=== PATIENT | male | born 1960 | race Caucasian/White ===

== ENCOUNTER 2016-07-18 08:29 | Inpatient (IN) | payer OTHER, MEDICARE ==
[2016-07-18] MEDS ORDERED: IPRATROPIUM/ALBUTEROL (0.5MG/3MG) NEB INH ONE (08:37)
[2016-07-18] MEDS ORDERED: METHYLPREDNISOLONE PF 125MG/VIAL IVP ONE (08:37)
[2016-07-18 08:54] LABS: HEMATOCRIT 44.2 % (42.0-52.0); HEMOGLOBIN 15.1 gm/dl (14.0-18.0); MEAN CELL VOLUME 88.4 fl (81-97); MEAN CORPUSCULAR HEMOGLOBIN 30.2 pg (27-33); MEAN CORPUSCULAR HGB CONC 34.2 g/dl (32-36); MEAN PLATELET VOLUME 10.7 fl (7.4-10.4); PLATELET COUNT 155 K/uL (130-400); RED CELL DISTRIBUTION WIDTH 14.6 % (11.5-14.5)
--- NOTE | 2016-07-18 08:58 | Emergency Department Record ---
History of Present Illness - General Chief Complaint: Shortness of breath Stated Complaint: SOB Time Seen by Provider: 07/18/16 08:37 Source: Patient Mode of Arrival: Ambulatory Limitations: No limitations - History of Present Illness Initial Comments: pt just got back from [place] where he rode with his sister who was sick in a car. he has been coughing, sob, chilling. he has copd, he smoked while on vacation. MD Complaint: Cough, Shortness of breath Onset/Timin -: Hour(s) Consistency: Intermittent Improves With: Nothing Worsens With: Coughing, Exertion Known History Of: COPD Context: Recent travel Associated Symptoms: Cough Treatments Prior to Arrival: None - Related Data Home Oxygen Therapy: No Home Medications Medication Instructions Recorded Confirmed Last Taken Albuterol Sulfate [Proair Hfa] 1 - 2 puff IH .EVERY 4-6 HOURS PRN 07/18/1607/18 Unknown Digoxin 125 mcg PO DAILY 07/18/16 07/18/16 07/17/16 Methadone HCl 3 mg PO BID 07/18/16 07/18/16 07/17/16 Metoprolol Succinate 100 mg PO DAILY 07/18/16 07/18/16 07/17/16 Oxycodone HCl 15 mg PO ASDIR 07/18/16 07/18/16 07/17/16 Warfarin Sodium [Coumadin] 3 mg PO QHS 07/18/16 07/18/16 07/17/16 Allergies Allergy/AdvReac Type Severity Reaction Status Date / Time No Known Drug Allergies Allergy Verified 07/18/16 08:37 Travel Screening - Travel/Exposure Within Last 30 Days Have you traveled within the last 30 days?: Yes Location Detail:: [place] - Travel Symptoms Symptom Screening: Chills Review of Systems Reviewed: No additional complaints except as noted below Constitutional: Reports: As per HPI. Denies: Chills, Fever, Malaise, Night sweats, Weakness, Weight change Eyes: Reports: As per HPI. Denies: Eye discharge, Eye pain, Photophobia, Vision change ENT: Reports: As per HPI. Denies: Congestion, Dental pain, Ear pain, Epistaxis , Hearing loss, Throat pain Respiratory: Reports: As per HPI. Denies: Cough, Dyspnea, Hemoptysis, Stridor, Wheezes Cardiovascular: Reports: As per HPI. Denies: Arrhythmia, Chest pain, Dyspnea on exertion, Edema, Murmurs, Orthopnea, Palpitations, Paroxysmal nocturnal dyspnea, Rheumatic Fever, Syncope Endocrine: Reports: As per HPI. Denies: Fatigue, Heat or cold intolerance, Polydipsia, Polyuria Gastrointestinal: Reports: As per HPI. Denies: Abdominal pain, Constipation, Diarrhea, Hematemesis, Hematochezia, Melena, Nausea, Vomiting Genitourinary: Reports: As per HPI. Denies: Dysuria, Frequency, Hematuria, Incontinence, Retention, Testicular pain, Testicular mass, Urgency Musculoskeletal: Reports: As per HPI. Denies: Arthralgia, Back pain, Gout, Joint swelling, Myalgia, Neck pain Skin: Reports: As per HPI. Denies: Bruising, Change in color, Change in hair/ nails, Lesions, Pruritus, Rash Neurological: Reports: As per HPI. Denies: Abnormal gait, Confusion, Headache, Numbness, Paresthesias, Seizure, Tingling, Tremors, Vertigo, Weakness Psychiatric: Reports: As per HPI. Denies: Anxiety, Auditory hallucinations, Depression, Homicidal thoughts, Suicidal thoughts, Visual hallucinations Hematological/Lymphatic: Reports: As per HPI. Denies: Anemia, Blood Clots, Easy bleeding, Easy bruising, Swollen glands Past Medical History - SOCIAL HISTORY Smoking Status: Current every day smoker Alcohol Use: None Drug Use: None - RESPIRATORY Hx Respiratory Disorders: Yes Hx COPD: Yes - CARDIOVASCULAR Hx Cardio Disorders: Yes Hx Hypertension: Yes Hx Irregular Heartbeat: Yes - NEURO Hx Neuro Disorders: No - GI Hx GI Disorders: No - Hx Genitourinary Disorders: No - ENDOCRINE Hx Endocrine Disorders: No - MUSCULOSKELETAL Hx Musculoskeletal Disorders: Yes Comment:: disc disease - PSYCH Hx Psych Problems: No - HEMATOLOGY/ONCOLOGY Hx Hematology/Oncology Disorders: No Family Medical History Any Significant Family History?: Yes Hx Heart Disease: Father, Mother Physical Exam - General General Appearance: Alert, Oriented x3, Cooperative, Mild distress - Head Head exam: Normal inspection - Eye Eye exam: Normal appearance, PERRL, EOMI Pupils: Normal accommodation - ENT ENT exam: Normal exam, Mucous membranes moist, Normal external ear exam, Normal orophraynx Ear exam: Normal external inspection. negative: External canal tenderness Nasal Exam: Normal inspection. negative: Discharge, Sinus tenderness Mouth exam: Normal external inspection, Tongue normal Teeth exam: Normal inspection. negative: Dental caries Throat exam: Normal inspection. negative: Tonsillar erythema, Tonsillar exudate - Neck Neck exam: Normal inspection, Full ROM. negative: Tenderness - Respiratory Respiratory exam: Decreased breath sounds, Respiratory distress, Wheezes - Cardiovascular Cardiovascular Exam: Regular rate, Normal rhythm, Normal heart sounds - GI/Abdominal GI/Abdominal exam: Soft, Normal bowel sounds. negative: Tenderness - Rectal Rectal exam: Deferred - exam: Deferred - Extremities Extremities exam: Normal inspection, Full ROM, Normal capillary refill. negative: Tenderness - Back Back exam: Reports: Normal inspection, Full ROM. Denies: Muscle spasm, Rash noted, Tenderness - Neurological Neurological exam: Alert, CN II-XII intact, Normal gait, Oriented X3 - Psychiatric Psychiatric exam: Normal affect, Normal mood - Skin Skin exam: Dry, Intact, Normal color, Warm Course Vital Signs 07/18/16 08:32 Temperature 99.9 F H Pulse Rate 92 H Respiratory 18 Rate Blood Pressure 161/86 Pulse Ox 89 L Medical Decision Making - Management Options MDM Management: Additional Work-up Planned (e.g. ADM/Transfer/OP Study) - Data Complexity MDM Data: Labs Ordered and/or Reviewed, X-Ray Ordered and/or Reviewed - Lab Data Result diagrams: 07/18/16 08:38 07/18/16 08:38 - Radiology Data Radiology results: Report reviewed, Image reviewed Disposition Disposition: Admit Clinical Impression: Pneumonia Qualifiers: Pneumonia type: due to unspecified organism Laterality: bilateral Lung location : unspecified part of lung Qualified Code(s): J18.9 - Pneumonia, unspecified organism Disposition: Still a Patient at [facility] Decision to Admit: Admit from ER Decision to Admit Date: 07/18/16 Decision to Admit Time: 10:37 Forms: Patient Portal Access
[2016-07-18 09:09] LABS: ANION GAP 13.1 (7-16); BLOOD UREA NITROGEN 6 mg/dL (9-20); CARBON DIOXIDE 25.9 mmol/L (22-30); CREATININE 0.5 mg/dL (0.66-1.25); EST GLOMERULAR FILTRATION RATE > 60 ml/min; GLUCOSE,RANDOM 113 mg/dL (70-110)
[2016-07-18 09:13] LABS: INR 1.72; PARTIAL THROMBOPLASTIN TIME 34.8 SECONDS (24.5-39.1); PROTHROMBIN TIME (PATIENT) 19.4 SECONDS (9.5-12.1)
[2016-07-18 09:20] LABS: DIGOXIN < 0.40 ng/mL (0.9-2.0); TROPONIN I < 0.012 ng/mL (0.00-0.034)
[2016-07-18] MEDS ORDERED: HEPARIN SODIUM 1000 UNIT/1 ML 10ML VIAL IVP ONE (10:24)
[2016-07-18 10:28] LABS: INFLUENZA A NEGATIVE (NEGATIVE); INFLUENZA B NEGATIVE (NEGATIVE)
[2016-07-18] MEDS ORDERED: CEFTRIAXONE SODIUM 1 GM in 0.9 % SODIUM CHLORIDE 100ML 100 ML IVPB ONE (10:29)
[2016-07-18] MEDS ORDERED: HEPARIN SODIUM/D5W 25,000 UNITS in DEXTROSE 5 % IN WATER 1 BAG IV SCH ×2 (10:30)
[2016-07-18] MEDS ORDERED: AZITHROMYCIN 500 MG TABLET PO ONE (10:30)
[2016-07-18] MEDS ORDERED: ACETAMINOPHEN 500 MG TABLET PO ONE (10:46)
[2016-07-18] MEDS ORDERED: ACETAMINOPHEN 500 MG TABLET PO PRN (11:24)
[2016-07-18] MEDS ORDERED: CEFTRIAXONE SODIUM 1 GM in 0.9 % SODIUM CHLORIDE 100ML 100 ML IVPB SCH (11:24)
[2016-07-18] MEDS ORDERED: ALBUTEROL SULFATE (0.083%) 2.5 MG/3 ML NEB INH PRN (11:24)
--- NOTE | 2016-07-18 12:55 | History & Physical ---
History of Present Illness - Date of Service Date of Service for History & Physical: 07/18/16 - History of Present Illness Admitting Diagnosis: pneumonia, afib History of Present Illness: 56 yo male admitted with PNA. PMHx of COPD, smoker (1ppd x 35+ years), CHF, Afib, mechanical mitral valve sub therapeutic on coumadin, degenerative disc disease (methadone and oxycodone for pain), and hepatitis C. Patient presented to our ED today after one day of coughing. Patient recently returned from a trip to [place] with his sister. He states that his sister had a cough the entire trip. He believes the change in temperature and sick contacts led to him getting sick. Alleviated with breathing treatments in the ER. Associated symptoms included dizziness, chills, and darker colored urine. Patient experienced similar symptoms last summer and didn't want his symptoms to get any worse. Upon presentation to the ED, temp 99.9, HR 92, RR 18, BP 161/86, pulse 0x 89 % on RA. CBC/ CMP relatively unremarkable. PT: 19.4, INR 1.72, PTT 34.80, d- dimer 0.55, BNP 2630, troponin negative, digoxin 0.40, influenza negative. Chest CTA: no PE, multiple lung infiltrates noted along with hilar adenopathy. Blood cultures pending. Patient started on PO Azithromycin and IV Rocephin. Two duo neb treatments performed in the ER within 30 minutes of each other. 125 of IV Solu Medrol given. Noting subtherapeutic INR, 98748 Units of IV Heparin initiated. Patient placed on telemetry and admitted for further medical management. This afternoon, patient is sitting up in bed eating lunch with his at bedside. He states he feels 100 % better. No fever, chills, n/v, abdominal pain, change in bladder or bowel function, skin rashes, dizziness/ lightheadedness, headache, chest pain, sputum production, sore throat, nasal congestion or hemoptysis. Aside from the initiation of Digoxin a few months ago , he denies any other changes to his medications. Due to traveling, he believes he may have missed a dose or two of his coumadin. He's found to be subtherapeutic. Denies any breathing issues typically. He has a rescue inhaler , however, states he never uses it. Has never seen a Maintenance Shop Technician. No supplemental O2 at home. PCP: Matias Clark D.O. Travel Screening - Travel/Exposure Within Last 30 Days Have you traveled within the last 30 days?: Yes Location Detail:: [place] - Travel/Exposure Within Last Year Have you traveled outside the [place] in the last year?: No - Additonal Travel Details Have you been exposed to anyone with a communicable illness?: Yes Exposure Details:: flu - Travel Symptoms Symptom Screening: None Review of Systems Constitutional: Reports: As per HPI. Denies: Chills, Fever, Malaise, Night sweats, Weakness, Weight change Eyes: Reports: As per HPI. Denies: Eye discharge, Eye pain, Photophobia, Vision change ENT: Reports: As per HPI. Denies: Congestion, Dental pain, Ear pain, Epistaxis , Hearing loss, Throat pain Respiratory: Reports: As per HPI. Denies: Cough, Dyspnea, Hemoptysis, Stridor, Wheezes Cardiovascular: Reports: As per HPI. Denies: Arrhythmia, Chest pain, Dyspnea on exertion, Edema, Murmurs, Orthopnea, Palpitations, Paroxysmal nocturnal dyspnea, Rheumatic Fever, Syncope Endocrine: Reports: As per HPI. Denies: Fatigue, Heat or cold intolerance, Polydipsia, Polyuria Gastrointestinal: Reports: As per HPI. Denies: Abdominal pain, Constipation, Diarrhea, Hematemesis, Hematochezia, Melena, Nausea, Vomiting Genitourinary: Reports: As per HPI. Denies: Dysuria, Frequency, Hematuria, Incontinence, Retention, Testicular pain, Testicular mass, Urgency Musculoskeletal: Reports: As per HPI. Denies: Arthralgia, Back pain, Gout, Joint swelling, Myalgia, Neck pain Skin: Reports: As per HPI. Denies: Bruising, Change in color, Change in hair/ nails, Lesions, Pruritus, Rash Neurological: Reports: As per HPI. Denies: Abnormal gait, Confusion, Headache, Numbness, Paresthesias, Seizure, Tingling, Tremors, Vertigo, Weakness Psychiatric: Reports: As per HPI. Denies: Anxiety, Auditory hallucinations, Depression, Homicidal thoughts, Suicidal thoughts, Visual hallucinations Hematological/Lymphatic: Reports: As per HPI. Denies: Anemia, Blood Clots, Easy bleeding, Easy bruising, Swollen glands Past Medical History - SOCIAL HISTORY Smoking Status: Current every day smoker Alcohol Use: None Drug Use: None - RESPIRATORY Hx Respiratory Disorders: Yes Hx COPD: Yes - CARDIOVASCULAR Hx Cardio Disorders: Yes Hx Hypertension: Yes Hx Irregular Heartbeat: Yes - NEURO Hx Neuro Disorders: No - GI Hx GI Disorders: No - Hx Genitourinary Disorders: No - ENDOCRINE Hx Endocrine Disorders: No - MUSCULOSKELETAL Hx Musculoskeletal Disorders: Yes Comment:: disc disease - PSYCH Hx Psych Problems: No - HEMATOLOGY/ONCOLOGY Hx Hematology/Oncology Disorders: No Family Medical History Any Significant Family History?: Yes Hx Heart Disease: Father, Mother H&P Meds/Allergies - Allergies Allergies: Allergies Allergy/AdvReac Type Severity Reaction Status Date / Time No Known Drug Allergies Allergy Verified 07/18/16 08:37 - Home Medications Home Medications Medication Instructions Recorded Confirmed Last Taken Albuterol Sulfate [Proair Hfa] 1 - 2 puff IH .EVERY 4-6 HOURS PRN 07/18/1607/18 Unknown Digoxin 125 mcg PO DAILY 07/18/16 07/18/16 07/17/16 Methadone HCl 3 mg PO BID 07/18/16 07/18/16 07/17/16 Metoprolol Succinate 100 mg PO DAILY 07/18/16 07/18/16 07/17/16 Oxycodone HCl 15 mg PO ASDIR 07/18/16 07/18/16 07/17/16 Warfarin Sodium [Coumadin] 3 mg PO QHS 07/18/16 07/18/16 07/17/16 - Active Medications Active Medications: Current Medications Acetaminophen (Tylenol 500mg Tab) 1,000 mg PO Q6H PRN PRN Reason: PAIN/TEMP Albuterol Sulfate () 2.5 mg INH RESP.Q4H PRN PRN Reason: DIFFICULTY IN BREATHING Albuterol/Ipratropium (Duoneb) 3 ml INH RESP.Q6H PRN PRN Reason: Wheezing Azithromycin (Zithromax) 500 mg PO DAILY DANIELLA Digoxin (Lanoxin) 125 mcg PO DAILY DANIELLA Heparin Sodium/Dextrose 25,000 (units/ Dextrose) 500 mls @ 21.01 mls/hr IV TITRATE DANIELLA; 12 UNITS/KG/HR PRN Reason: Protocol Last Admin: 07/18/16 10:38 Dose: 21.01 mls/hr Ceftriaxone Sodium 1 gm/ (Sodium Chloride) 100 mls @ 100 mls/hr IVPB Q24H [facility] Stop: 07/23/16 11:25 Methadone HCl (Dolophine) 3 mg PO BID [facility] Stop: 07/25/16 22:01 Methylprednisolone Sodium Succinate (Solu-Medrol) 125 mg IVP DAILY [facility] Non-Formulary Medication (Metoprolol Succinate [Metoprolol Succinate]) 100 mg PO DAILY [facility] Non-Formulary Medication (Oxycodone Hcl [Oxycodone Hcl]) 15 mg PO ASDIR [facility] Non-Formulary Medication (Warfarin Sodium [Coumadin]) 3 mg PO QHS [facility] Physical Exam - Vital Signs Vital Signs: Vital Signs - Last 24 Hrs Temp Pulse Resp BP Pulse Ox 07/18/16 11:30 94 L 07/18/16 11:24 99.7 F H 102 H 16 114/71 87 L - General General Appearance: Alert, Oriented x3, Cooperative, No acute distress Limitations: No limitations - Head Head exam: Normal inspection - Eye Eye exam: Normal appearance, PERRL, EOMI Pupils: Normal accommodation - ENT ENT exam: Normal exam, Mucous membranes moist, Normal external ear exam, Normal orophraynx Ear exam: Normal external inspection. negative: External canal tenderness Nasal Exam: Normal inspection. negative: Discharge, Sinus tenderness Mouth exam: Normal external inspection, Tongue normal Teeth exam: Normal inspection. negative: Dental caries Throat exam: Normal inspection. negative: Tonsillar erythema, Tonsillar exudate - Neck Neck exam: Normal inspection, Full ROM. negative: Tenderness - Respiratory Respiratory exam: Decreased breath sounds, Rhonchi (b/l), Wheezes. negative: Respiratory distress - Cardiovascular Cardiovascular Exam: Normal heart sounds, Irregular rhythm (afib), Tachycardia - GI/Abdominal GI/Abdominal exam: Soft, Normal bowel sounds. negative: Tenderness - Rectal Rectal exam: Deferred - exam: Deferred - Extremities Extremities exam: Normal inspection, Full ROM, Normal capillary refill. negative: Tenderness - Back Back exam: Reports: Normal inspection, Full ROM. Denies: Muscle spasm, Rash noted, Tenderness - Neurological Neurological exam: Alert, CN II-XII intact, Normal gait, Oriented X3 - Psychiatric Psychiatric exam: Normal affect, Normal mood - Skin Skin exam: Dry, Intact, Normal color, Warm Results - Labs Result Diagrams: 07/18/16 08:38 07/18/16 08:38 VTE H&P Assessment - Risk for VTE Risk for VTE: Yes Risk Level: Moderate Risk Assessment Date: 07/18/16 Risk Assessment Time: 12:00 VTE Orders Placed or Will Be Placed: Yes Plan - Inpatient Certification Inpatient Certification: Admit to inpatient care: Based on my medical assessment, after consideration of patient's risk factors (age, co-morbidities and patient presenting symptoms and acuity), I expect that this patient will remain in the hospital greater than or equal to two midnights and that the services needed warrant inpatient care because: Patient Risk Factors: [respiratory distress, pneumonia, weakness, sub therapeutic anticoagulation] Estimated length of stay: [48-72 hours] The patient may reasonably be expected to be discharged or transferred to a hospital within 96 hours after admission to [facility]. Services needed: [IV antibiotics and steroids, duo neb treatments, IV anti coagulation, telemetry, labs, VS monitoring.] Post hospital care (if known): [home, self care] I certify that my determination is in accordance with my understanding of Medicare requirements for reasonable and necessary inpatient services. 07/18/16 13:05 - Detailed Diagnosis and Plan (1) Pneumonia Current Visit: Yes Status: Acute Qualifiers: Pneumonia type: due to unspecified organism Laterality: bilateral Lung location: unspecified part of lung Qualified Code(s): J18.9 - Pneumonia , unspecified organism Base Code: J18.9 - PNEUMONIA, UNSPECIFIED ORGANISM Comment: 07/18/16: -Chest CTA: multiple pulmonary infiltrates bilaterally along with hilar adenopathy. No PE -Continue PO Azithromycin and IV Rocephin -125 mg of IV Solu Medrol today and 60 mg IV Solu medrol there after -Duo neb treatments Q6 hours as needed. -telemetry and will monitor VS's closely -tylenol, ibuprofen as needed for fever -repeat imaging once treatment completed to verify clearing of infection. (2) Atrial fibrillation Current Visit: Yes Status: Acute Base Code: I48.91 - UNSPECIFIED ATRIAL FIBRILLATION Comment: 07/18/16: 56 yo male w/ history of mechanical mitral valve and atrial fibrilation. sub therapeutic on coumadin with INR of 1.72. -continue home digoxin, metoprolol and anti coagulation -49227 units of IV heparin to correct INR level. -discussed importance of taking medications as prescribed. (3) DVT prophylaxis Current Visit: Yes Status: Acute Base Code: [id number] - Comment: 07/18/16: on coumadin. IV Heparin to meet appropriate INR level. (4) Full code status Current Visit: Yes Status: Acute Base Code: Z78.9 - OTHER SPECIFIED HEALTH STATUS Comment: 07/18/16: patient is full code
[2016-07-18] MEDS ORDERED: OXYCODONE HCL 5 MG TABLET PO PRN (13:38)
[2016-07-18] MEDS ORDERED: FLUCONAZOLE 100 MG TABLET PO ONE (13:50)
[2016-07-18] MEDS: FUROSEMIDE IV 20MG/2ML VIAL IVP SCH (14:46)
[2016-07-18] MEDS: IPRATROPIUM/ALBUTEROL (0.5MG/3MG) NEB INH PRN (15:34)
[2016-07-18] MEDS: WARFARIN 1 MG TABLET PO SCH (17:05)
[2016-07-18] MEDS: DIGOXIN 125 MCG TABLET PO SCH (17:05)
[2016-07-18] MEDS: METOPROLOL SUCC 50 MG TABLET PO SCH (17:06)
[2016-07-18] MEDS: CEFTRIAXONE SODIUM 1 GM in 0.9 % SODIUM CHLORIDE 100ML 100 ML IVPB SCH (21:23)
[2016-07-18] MEDS ORDERED: METHADONE HCL 5 MG TABLET PO PRN (22:00)
[2016-07-19] MEDS: IPRATROPIUM/ALBUTEROL (0.5MG/3MG) NEB INH PRN ×2 (05:50→20:10)
[2016-07-19 06:22] LABS: INR 1.76; PROTHROMBIN TIME (PATIENT) 19.9 SECONDS (9.5-12.1)
[2016-07-19 06:25] LABS: HEMATOCRIT 41.8 % (42.0-52.0); HEMOGLOBIN 14.1 gm/dl (14.0-18.0); MEAN CELL VOLUME 88.7 fl (81-97); MEAN CORPUSCULAR HEMOGLOBIN 29.9 pg (27-33); MEAN CORPUSCULAR HGB CONC 33.7 g/dl (32-36); MEAN PLATELET VOLUME 10.8 fl (7.4-10.4); PLATELET COUNT 161 K/uL (130-400); RED BLOOD COUNT 4.71 M/uL (4.40-5.70); RED CELL DISTRIBUTION WIDTH 14.5 % (11.5-14.5); WHITE BLOOD COUNT W/O DIFF 11.2 K/uL (4.2-12.2)
[2016-07-19 06:26] LABS: ALBUMIN 3.6 gm/dL (3.5-5.0); ALKALINE PHOSPHATASE 81 U/L (38-126); ALT/SGPT 35 U/L (21-72); ANION GAP 12.4 (7-16); AST/SGOT 26 U/L (17-59); BILIRUBIN,TOTAL 0.33 mg/dL (0.2-1.3); BLOOD UREA NITROGEN 9 mg/dL (9-20); CARBON DIOXIDE 25.6 mmol/L (22-30); CREATININE 0.5 mg/dL (0.66-1.25); EST GLOMERULAR FILTRATION RATE > 60 ml/min; GLUCOSE,RANDOM 126 mg/dL (70-110); TOTAL PROTEIN 7.1 gm/dL (6.3-8.2)
--- NOTE | 2016-07-19 07:37 | Physician Progress Note ---
Subjective - Date Date of Physician Progress Note: 07/19/16 - Subjective Subjective Comment: sitting up in bed with patient's at bedside. States he's feeling much better. no longer requiring supplemental oxygen requested breathing treatment earlier this morning coughing up white sputum tolerating meals. ambulating the room. normal /GI function. denies fever, CP, dizziness, weakness. Objective - Vital Signs Vital Signs: Vital Signs - Last 24 Hrs Temp Pulse Pulse Resp BP BP Pulse Ox 07/19/16 05:50 80 16 92 L 07/19/16 04:00 98.2 F 81 20 113/63 92 L 07/18/16 21:45 81 92 L 07/18/16 20:27 71 20 07/18/16 20:00 98.5 F 80 18 116/60 95 07/18/16 15:46 100 H 18 07/18/16 11:30 94 L 07/18/16 11:24 99.7 F H 102 H 16 114/71 87 L - General General Appearance: Alert, Oriented x3, Cooperative, No acute distress Limitations: No limitations - Head Head exam: Normal inspection - Eye Eye exam: Normal appearance, PERRL, EOMI Pupils: Normal accommodation - ENT ENT exam: Normal exam, Mucous membranes moist, Normal external ear exam, Normal orophraynx Ear exam: Normal external inspection. negative: External canal tenderness Nasal Exam: Normal inspection. negative: Discharge, Sinus tenderness Mouth exam: Normal external inspection, Tongue normal Teeth exam: Normal inspection. negative: Dental caries Throat exam: Normal inspection. negative: Tonsillar erythema, Tonsillar exudate - Neck Neck exam: Normal inspection, Full ROM. negative: Tenderness - Respiratory Respiratory exam: Decreased breath sounds, Rhonchi (B/L, improving), Wheezes. negative: Respiratory distress - Cardiovascular Cardiovascular Exam: Regular rate, Normal heart sounds, Irregular rhythm (afib) - GI/Abdominal GI/Abdominal exam: Soft, Normal bowel sounds. negative: Tenderness - Rectal Rectal exam: Deferred - exam: Deferred - Extremities Extremities exam: Normal inspection, Full ROM, Normal capillary refill. negative: Tenderness - Back Back exam: Reports: Normal inspection, Full ROM. Denies: Muscle spasm, Rash noted, Tenderness - Neurological Neurological exam: Alert, CN II-XII intact, Normal gait, Oriented X3 - Psychiatric Psychiatric exam: Normal affect, Normal mood - Skin Skin exam: Dry, Intact, Normal color, Warm Assessment and Plan - Assessment and Plan (1) Pneumonia Current Visit: Yes Status: Acute Qualifiers: Pneumonia type: due to unspecified organism Laterality: bilateral Lung location: unspecified part of lung Qualified Code(s): J18.9 - Pneumonia, unspecified organism Base Code: J18.9 - PNEUMONIA, UNSPECIFIED ORGANISM Comment: 07/19/16: -Chest CTA: multiple pulmonary infiltrates bilaterally along with hilar adenopathy. No PE -Continue PO Azithromycin and IV Rocephin -60 mg IV Solu medrol -Duo neb treatments Q6 hours as needed. -telemetry and will monitor VS's closely -tylenol, ibuprofen as needed for fever -repeat imaging once treatment completed to verify clearing of infection. (2) Atrial fibrillation Current Visit: Yes Status: Acute Base Code: I48.91 - UNSPECIFIED ATRIAL FIBRILLATION Comment: 07/19/16: 56 yo male w/ history of mechanical mitral valve and atrial fibrilation. sub therapeutic on coumadin with INR of 1.72. -continue home digoxin, metoprolol and anti coagulation -discussed importance of taking medications as prescribed. -monitor PT/INR Q24 hours (3) DVT prophylaxis Current Visit: Yes Status: Acute Base Code: [id number] - Comment: 07/19/16: on coumadin. Monitor PT/INR Q24 hours. Patient ambulating the room and hallways. (4) Full code status Current Visit: Yes Status: Acute Base Code: Z78.9 - OTHER SPECIFIED HEALTH STATUS Comment: 07/19/16: patient is full code Results - Labs Result Diagrams: 07/19/16 05:45 07/19/16 05:45 Labs Last 24 Hours: Laboratory Results - last 24 hr 07/18/16 07/18/16 07/19/16 16:21 23:00 05:45 WBC RBC Hgb Hct MCV MCH MCHC RDW Plt Count MPV Neutrophils % Band Neutrophils % Lymphocytes % Monocytes % Eosinophils % Basophils % PT 19.9 H INR 1.76 PTT 91.90 H Cancelled Sodium Potassium Chloride Carbon Dioxide Anion Gap BUN Creatinine Estimated GFR Random Glucose Calcium Total Bilirubin AST ALT Alkaline Phosphatase Total Protein Albumin Globulin Albumin/Globulin Ratio Digoxin 07/19/16 07/19/16 07/19/16 05:45 05:45 05:45 WBC 11.2 RBC 4.71 Hgb 14.1 Hct 41.8 L MCV 88.7 MCH 29.9 MCHC 33.7 RDW 14.5 Plt Count 161 MPV 10.8 H Neutrophils % 80.0 Band Neutrophils % 7.0 H Lymphocytes % 6.0 L Monocytes % 7.0 Eosinophils % Not Reportable Basophils % Not Reportable PT INR PTT Sodium 137 Potassium 4.2 Chloride 99 Carbon Dioxide 25.6 Anion Gap 12.4 BUN 9 Creatinine 0.5 L Estimated GFR > 60 Random Glucose 126 H Calcium 8.6 Total Bilirubin 0.33 AST 26 ALT 35 Alkaline Phosphatase 81 Total Protein 7.1 Albumin 3.6 Globulin 3.5 Albumin/Globulin Ratio 1.0 L Digoxin 0.70 L DVT/PE Assessment - Risk for VTE Risk for VTE: No Risk Level: Moderate Risk Assessment Date: 07/18/16 Risk Assessment Time: 12:00 VTE Orders Placed or Will Be Placed: Yes - Active Medicaitons Current Medications: Current Medications Acetaminophen (Tylenol 500mg Tab) 1,000 mg PO Q6H PRN PRN Reason: PAIN/TEMP Albuterol Sulfate () 2.5 mg INH RESP.Q4H PRN PRN Reason: DIFFICULTY IN BREATHING Albuterol/Ipratropium (Duoneb) 3 ml INH RESP.Q6H PRN PRN Reason: Wheezing Last Admin: 07/19/16 05:50 Dose: 3 ml Azithromycin (Zithromax) 500 mg PO DAILY DANIELLA Digoxin (Lanoxin) 125 mcg PO QPM [facility] Last Admin: 07/18/16 17:05 Dose: 125 mcg Furosemide (Lasix Iv) 20 mg IVP DAILY [facility] Last Admin: 07/18/16 14:46 Dose: 20 mg Heparin Sodium/Dextrose 25,000 (units/ Dextrose) 500 mls @ 21.01 mls/hr IV TITRATE DANIELLA; 12 UNITS/KG/HR PRN Reason: Protocol Last Titration: 07/18/16 16:59 Dose: 10.85 units/kg/hr Ceftriaxone Sodium 1 gm/ (Sodium Chloride) 100 mls @ 100 mls/hr IVPB Q12H DAN[facility] Stop: 07/23/16 11:25 Last Admin: 07/18/16 21:23 Dose: 100 mls/hr Methadone HCl (Dolophine) 10 mg PO BID PRN PRN Reason: Pain - General Stop: 07/25/16 22:01 Methylprednisolone Sodium Succinate (Solu-Medrol) 60 mg IVP DAILY [facility] Metoprolol Succinate (Toprol Xl) 100 mg PO QPM [facility] Last Admin: 07/18/16 17:06 Dose: 100 mg Oxycodone HCl (Oxy Ir) 15 mg PO QID PRN PRN Reason: Pain - General Last Admin: 07/18/16 22:59 Dose: 15 mg Warfarin Sodium (Coumadin) 3 mg PO QPM [facility] Last Admin: 07/18/16 17:05 Dose: 3 mg AMI Plan - Labs Result Diagrams: 07/19/16 05:45 07/19/16 05:45
[2016-07-19] MEDS: FUROSEMIDE IV 20MG/2ML VIAL IVP SCH (09:52)
[2016-07-19] MEDS: CEFTRIAXONE SODIUM 1 GM in 0.9 % SODIUM CHLORIDE 100ML 100 ML IVPB SCH ×2 (09:53→21:00)
[2016-07-19] MEDS: METHYLPREDNISOLONE PF 125MG/VIAL IVP SCH (09:53)
[2016-07-19] MEDS: AZITHROMYCIN 500 MG TABLET PO SCH (09:53)
[2016-07-19] MEDS: WARFARIN 1 MG TABLET PO SCH (17:46)
[2016-07-19] MEDS: DIGOXIN 125 MCG TABLET PO SCH (17:47)
[2016-07-19] MEDS: METOPROLOL SUCC 50 MG TABLET PO SCH (17:48)
[2016-07-20 06:39] LABS: HEMATOCRIT 41.9 % (42.0-52.0); MEAN CELL VOLUME 89.9 fl (81-97); MEAN CORPUSCULAR HGB CONC 33.4 g/dl (32-36); MEAN PLATELET VOLUME 10.9 fl (7.4-10.4); PLATELET COUNT 169 K/uL (130-400); RED BLOOD COUNT 4.66 M/uL (4.40-5.70); RED CELL DISTRIBUTION WIDTH 14.9 % (11.5-14.5)
[2016-07-20 06:50] LABS: INR 1.84; PROTHROMBIN TIME (PATIENT) 20.8 SECONDS (9.5-12.1)
[2016-07-20 06:55] LABS: ALBUMIN 3.4 gm/dL (3.5-5.0); ALKALINE PHOSPHATASE 83 U/L (38-126); ALT/SGPT 31 U/L (21-72); ANION GAP 11.3 (7-16); AST/SGOT 23 U/L (17-59); BILIRUBIN,TOTAL 0.22 mg/dL (0.2-1.3); BLOOD UREA NITROGEN 11 mg/dL (9-20); CARBON DIOXIDE 26.7 mmol/L (22-30); CREATININE 0.5 mg/dL (0.66-1.25); EST GLOMERULAR FILTRATION RATE > 60 ml/min; GLUCOSE,RANDOM 100 mg/dL (70-110); TOTAL PROTEIN 6.7 gm/dL (6.3-8.2)
[2016-07-20 06:58] LABS: PLATELET ESTIMATE NORMAL (NORMAL)
[2016-07-20] MEDS: IPRATROPIUM/ALBUTEROL (0.5MG/3MG) NEB INH PRN (07:56)
[2016-07-20] MEDS: FUROSEMIDE IV 20MG/2ML VIAL IVP SCH (10:02)
[2016-07-20] MEDS: CEFTRIAXONE SODIUM 1 GM in 0.9 % SODIUM CHLORIDE 100ML 100 ML IVPB SCH (10:02)
[2016-07-20] MEDS: AZITHROMYCIN 500 MG TABLET PO SCH (10:03)
[2016-07-20] MEDS: METHYLPREDNISOLONE PF 125MG/VIAL IVP SCH (10:03)
[2016-07-20] MEDS ORDERED: BISACODYL 5 MG TABLET PO ONE (10:29)
--- NOTE | 2016-07-20 10:38 | Discharge Summary ---
Providers Discharge Summary Date: 07/20/16 Date of admission: 07/18/16 10:56 Expected Date of Discharge: 07/20/16 Attending physician: OMA HARRELL Primary care physician: MATIAS CHONG D.O. Physical Exam - Vital Signs Vital Signs: Vital Signs - Last 24 Hrs Temp Pulse Pulse Resp BP BP Pulse Ox 07/20/16 09:00 98.0 F 66 18 118/67 93 L 07/20/16 07:59 75 18 07/20/16 05:00 97.8 F 75 20 116/73 94 L 07/19/16 21:00 22 07/19/16 20:11 88 92 H 20 L 07/19/16 20:07 88 20 94 L 07/19/16 20:00 98.1 F 106 H 20 106/67 96 07/19/16 12:00 97.6 F 86 18 125/71 94 L - General General Appearance: Alert, Oriented x3, Cooperative, No acute distress Limitations: No limitations - Head Head exam: Normal inspection - Eye Eye exam: Normal appearance, PERRL, EOMI Pupils: Normal accommodation - ENT ENT exam: Normal exam, Mucous membranes moist, Normal external ear exam, Normal orophraynx Ear exam: Normal external inspection. negative: External canal tenderness Nasal Exam: Normal inspection. negative: Discharge, Sinus tenderness Mouth exam: Normal external inspection, Tongue normal Teeth exam: Normal inspection. negative: Dental caries Throat exam: Normal inspection. negative: Tonsillar erythema, Tonsillar exudate - Neck Neck exam: Normal inspection, Full ROM. negative: Tenderness - Respiratory Respiratory exam: Decreased breath sounds, Rhonchi (B/L, improving), Wheezes. negative: Respiratory distress - Cardiovascular Cardiovascular Exam: Regular rate, Normal heart sounds, Irregular rhythm (afib) - GI/Abdominal GI/Abdominal exam: Soft, Normal bowel sounds. negative: Tenderness - Rectal Rectal exam: Deferred - exam: Deferred - Extremities Extremities exam: Normal inspection, Full ROM, Normal capillary refill. negative: Tenderness - Back Back exam: Reports: Normal inspection, Full ROM. Denies: Muscle spasm, Rash noted, Tenderness - Neurological Neurological exam: Alert, CN II-XII intact, Normal gait, Oriented X3 - Psychiatric Psychiatric exam: Normal affect, Normal mood - Skin Skin exam: Dry, Intact, Normal color, Warm Hospitalization - Hospitalization Admission Diagnosis: pneumonia, afib - Problem List/Discharge Diagnosis (1) Pneumonia Current Visit: Yes Status: Acute Discharge Diagnosis: Pneumonia type: due to unspecified organism Laterality: bilateral Lung location: unspecified part of lung Qualified Code(s): J18.9 - Pneumonia, unspecified organism Base Code: J18.9 - PNEUMONIA, UNSPECIFIED ORGANISM Comment: 07/20/16: -Chest CTA: multiple pulmonary infiltrates bilaterally along with hilar adenopathy. No PE -Complete PO Azithromycin and PO steroid. -albuterol Q 4-6 hours as needed -tylenol, ibuprofen as needed for fever -repeat imaging once treatment completed to verify clearing of infection. (2) Atrial fibrillation Current Visit: Yes Status: Acute Base Code: I48.91 - UNSPECIFIED ATRIAL FIBRILLATION Comment: 07/20/16: 56 yo male w/ history of mechanical mitral valve and atrial fibrilation. sub therapeutic on coumadin with INR of 1.8 -continue home digoxin, metoprolol and anti coagulation -discussed importance of taking medications as prescribed. -monitor PT/INR. Please have this checked on 07/22 or 07/23 prior to your appt with your PCP. (3) Full code status Current Visit: Yes Status: Acute Base Code: Z78.9 - OTHER SPECIFIED HEALTH STATUS Comment: 07/20/16: patient remains full code - Hospitalization Course Disposition: Home, Self-Care Hospital Course: 56 yo male admitted with PNA. PMHx of COPD, smoker (1ppd x 35+ years), CHF, Afib, mechanical mitral valve sub therapeutic on coumadin, degenerative disc disease (methadone and oxycodone for pain), and hepatitis C. Patient presented to our ED today after one day of coughing. Patient recently returned from a trip to [place] with his sister. He states that his sister had a cough the entire trip. He believes the change in temperature and sick contacts led to him getting sick. Alleviated with breathing treatments in the ER. Associated symptoms included dizziness, chills, and darker colored urine. Patient experienced similar symptoms last summer and didn't want his symptoms to get any worse. Upon presentation to the ED, temp 99.9, HR 92, RR 18, BP 161/86, pulse 0x 89 % on RA. CBC/ CMP relatively unremarkable. PT: 19.4, INR 1.72, PTT 34.80, d- dimer 0.55, BNP 2630, troponin negative, digoxin 0.40, influenza negative. Chest CTA: no PE, multiple lung infiltrates noted along with hilar adenopathy. Blood cultures pending. Patient started on PO Azithromycin and IV Rocephin. Two duo neb treatments performed in the ER within 30 minutes of each other. 125 of IV Solu Medrol given. Noting subtherapeutic INR, [id number] Units of IV Heparin initiated. Patient placed on telemetry and admitted for further medical management. This afternoon, patient is sitting up in bed eating lunch with his at bedside. He states he feels 100 % better. No fever, chills, n/v, abdominal pain, change in bladder or bowel function, skin rashes, dizziness/ lightheadedness, headache, chest pain, sputum production, sore throat, nasal congestion or hemoptysis. Aside from the initiation of Digoxin a few months ago , he denies any other changes to his medications. Due to traveling, he believes he may have missed a dose or two of his coumadin. He's found to be subtherapeutic. Denies any breathing issues typically. He has a rescue inhaler , however, states he never uses it. 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 No supplemental O2 at home. PCP: Matias Clark D.O. 07/20/16: patient sitting up in bed. states he feels ready to go home. his main concern is his bowel habits. he's passing gas. one small stool yesterday though states he's typically more regular. no nausea, vomiting, fever, chills, nausea, abdominal pain, sputum production, rash. tolerated meals. ambulating the room and hallways. Abnormal Labs: Abnormal Lab Results 07/18/16 07/19/16 07/19/16 Range/Units 16:21 05:45 05:45 Hct (42.0-52.0) % RDW (11.5-14.5) % MPV (7.4-10.4) fl Band Neutrophils % (0-5) % Lymphocytes % (16-45) % Monocytes % (0-9) % PT 19.9 H (9.5-12.1) SECONDS PTT 91.90 H (24.5-39.1) SECONDS Creatinine (0.66-1.25) mg/dL Random Glucose (70-110) mg/dL Albumin (3.5-5.0) gm/dL Albumin/Globulin Ratio (1.1-1.8) Digoxin 0.70 L (0.9-2.0) ng/mL 07/19/16 07/19/16 07/20/16 Range/Units 05:45 05:45 06:00 Hct 41.8 L (42.0-52.0) % RDW (11.5-14.5) % MPV 10.8 H (7.4-10.4) fl Band Neutrophils % 7.0 H (0-5) % Lymphocytes % 6.0 L (16-45) % Monocytes % (0-9) % PT 20.8 H (9.5-12.1) SECONDS PTT (24.5-39.1) SECONDS Creatinine 0.5 L (0.66-1.25) mg/dL Random Glucose 126 H (70-110) mg/dL Albumin (3.5-5.0) gm/dL Albumin/Globulin Ratio 1.0 L (1.1-1.8) Digoxin (0.9-2.0) ng/mL 07/20/16 07/20/16 Range/Units 06:05 06:05 Hct 41.9 L (42.0-52.0) % RDW 14.9 H (11.5-14.5) % MPV 10.9 H (7.4-10.4) fl Band Neutrophils % (0-5) % Lymphocytes % 11.0 L (16-45) % Monocytes % 14.0 H (0-9) % PT (9.5-12.1) SECONDS PTT (24.5-39.1) SECONDS Creatinine 0.5 L (0.66-1.25) mg/dL Random Glucose (70-110) mg/dL Albumin 3.4 L (3.5-5.0) gm/dL Albumin/Globulin Ratio 1.0 L (1.1-1.8) Digoxin (0.9-2.0) ng/mL Discharge Medications - Discharge Medications Prescriptions: Prednisone 50 mg PO DAILY #5 tablet Albuterol Sulfate [Ventolin Hfa] 1 - 2 puff IH .EVERY 4-6 HOURS PRN #1 inhaler PRN Reason: Difficulty In Breathing Azithromycin [Zithromax] 500 mg PO DAILY #2 tab Home Medications: Ambulatory Orders Albuterol Sulfate [Proair Hfa] 1 - 2 puff IH .EVERY 4-6 HOURS PRN 07/18/16 [ Last Taken Unknown] Digoxin 125 mcg PO QPM 07/18/16 [Last Taken 07/17/16] Methadone HCl 10 mg PO BID PRN 07/18/16 [Last Taken Unknown] Metoprolol Succinate 100 mg PO QPM 07/18/16 [Last Taken 07/17/16] Oxycodone HCl 15 mg PO QID PRN 07/18/16 [Last Taken 07/17/16] Warfarin Sodium [Coumadin] 3 mg PO QPM 07/18/16 [Last Taken 07/17/16] Albuterol Sulfate [Ventolin Hfa] 1 - 2 puff IH .EVERY 4-6 HOURS PRN #1 inhaler 07/20/16 [Last Taken Unknown] Azithromycin [Zithromax] 500 mg PO DAILY #2 tab 07/20/16 [Last Taken Unknown] Prednisone 50 mg PO DAILY #5 tablet 07/20/16 [Last Taken Unknown] Discharge Plan - Discharge Instructions Activity at Discharge: Increase Activity as Tolerated Diet at Discharge: Regular Diet Additional Instructions: pharmacy picking technician prescriptions and take as prescribed. be sure to complete antibiotic therapy. complete steroid as well. get labs drawn and CXR competed prior to your appt with your PCP on Thursday. Rest. f/up with PCP on Thursday. Return sooner re any new or worsening symptoms.
--- NOTE | 2016-07-21 07:48 | CT ANGIOGRAM REPORT ---
EXAM: CTA OF THE CHEST FOR PE WITH POST PROCESSING HISTORY: SHORTNESS OF BREATH, ELEVATED D-DIMER. TECHNIQUE: CTA of the chest was performed following the intravenous administration of 82 ml of Omnipaque 350 as the IV contrast. Post processing on an independent workstation was performed with coronal and sagittal 3D MIP series obtained. Comparison: None. FINDINGS: No definite PE is identified. The patient is postop sternotomy. No thoracic aortic aneurysm or dissection is seen. No pleural or pericardial effusion evident. There is some mild mediastinal and hilar adenopathy nonspecific and clinical correlation is suggested. Bilateral breast tissue is seen, presumably representing gynecomastia. No pneumothorax evident. There is some mild infiltrate in the left upper lobe and also some atelectasis or infiltrate in the lingula and right middle lobe. Some ground glass infiltrate in the lower lobes bilaterally. Some hypertrophic spurring in the spine. IMPRESSION: 1. NO DEFINITE PE IDENTIFIED. 2. POSTOP STERNOTOMY WITH A PROSTHETIC MITRAL VALVE. 3. MILD HILAR AND MEDIASTINAL ADENOPATHY NONSPECIFIC. 4. BILATERAL BREAST TISSUE, PRESUMABLY GYNECOMASTIA. 5. SOME MILD INFILTRATE LEFT UPPER LOBE AND ALSO SOME ATELECTASIS OR INFILTRATE IN THE RIGHT MIDDLE LOBE AND LINGULA WELL SOME GROUND GLASS INFILTRATE IN BOTH LOWER LOBES. SOME MILD PLEURAL THICKENING IN THE RIGHT BASE POSTERIORLY WELL. JOB NUMBER: [id number] MTDD
== END 2016-07-20 11:00 | disposition home or self-care (01) | DRG 195 ==
LOC: ER 08:29 → MEDSURG 10:56
PROVIDERS: ADMIT Family Medicine; ATTEND Family Medicine
DX: J18.1 Lobar pneumonia, unspecified organism (principal); J44.9 Chronic obstructive pulmonary disease, unspecified; F17.210 Nicotine dependence, cigarettes, uncomplicated; I50.9 Heart failure, unspecified; I48.91 Unspecified atrial fibrillation; Z78.9 Other specified health status
CPT/HCPCS: 71275; 80048; 80053; 80162; 83880; 84484; 85027; 85379; 85610; 85730; 87400; 93005; 93010; 94640; 94760; 94761; 96365; 96366; 96368; 96375; 99223; 99233; 99239; 99285; J1940; J2930; S0109

== ENCOUNTER 2018-09-11 22:43 | Observation (INO) | payer OTHER, MEDICARE ==
[2018-09-11] MEDS ORDERED: IPRATROPIUM/ALBUTEROL (0.5MG/3MG) NEB INH ONE (22:53)
--- NOTE | 2018-09-11 23:10 | Emergency Department Record ---
History of Present Illness - General Chief Complaint: Shortness of breath Stated Complaint: VERO Time Seen by Provider: 09/11/18 22:53 Source: Patient Mode of Arrival: Ambulatory Limitations: No limitations - History of Present Illness Initial Comments: 58 yo male presents to ED for evaluation of difficulty in breathing this evening , reports a history of COPD/CHF. Patient denies fevers, chills, or productive cough symptoms. Patient does report taking Coumadin for his atrial fibrillation and s/p heart valve. Patient denies calf swelling/pain symptoms, denies lower extremity edema symptoms. MD Complaint: Shortness of breath Onset/Timin -: Week(s) Severity: Moderate Consistency: Intermittent Improves With: Rest Worsens With: Exertion Known History Of: Congestive heart failure, COPD Associated Symptoms: Cough Treatments Prior to Arrival: None - Related Data Home Oxygen Therapy: No Home Medications Medication Instructions Recorded Confirmed Last Taken Budesonide/Formoterol Fumarate 2 inh IH BID 09/11/18 09/11/18 09/11/18 [Symbicort 80-4.5 Mcg Inhaler] Allergies Allergy/AdvReac Type Severity Reaction Status Date / Time enoxaparin [From Lovenox] Allergy RASH Verified 09/11/18 22:45 Travel Screening - Travel/Exposure Within Last 30 Days Have you traveled within the last 30 days?: Yes Location Detail:: [place] - Travel/Exposure Within Last Year Have you traveled outside the [place] in the last year?: No - Travel Symptoms Symptom Screening: None Review of Systems Constitutional: Denies: Chills, Fever, Malaise, Night sweats Eyes: Denies: Eye discharge, Eye pain ENT: Denies: Congestion, Ear pain, Epistaxis Respiratory: Reports: Dyspnea. Denies: Cough Cardiovascular: Reports: Dyspnea on exertion. Denies: Chest pain Endocrine: Denies: Fatigue, Heat or cold intolerance Gastrointestinal: Denies: Abdominal pain, Nausea, Vomiting Genitourinary: Denies: Incontinence, Retention Musculoskeletal: Denies: Arthralgia, Back pain, Gout, Joint swelling Skin: Denies: Bruising, Change in color Neurological: Denies: Abnormal gait, Confusion, Headache, Seizure Psychiatric: Denies: Anxiety Hematological/Lymphatic: Denies: Anemia, Blood Clots Past Medical History - SOCIAL HISTORY Smoking Status: Former smoker - RESPIRATORY Hx Respiratory Disorders: Yes Hx COPD: Yes - CARDIOVASCULAR Hx Cardio Disorders: Yes Hx CHF: Yes Hx Hypertension: Yes Hx Irregular Heartbeat: Yes (A-fib) - NEURO Hx Neuro Disorders: No - GI Hx GI Disorders: No - Hx Genitourinary Disorders: No - ENDOCRINE Hx Endocrine Disorders: No - MUSCULOSKELETAL Hx Musculoskeletal Disorders: Yes Comment:: disc disease - PSYCH Hx Psych Problems: No - HEMATOLOGY/ONCOLOGY Hx Hematology/Oncology Disorders: No Family Medical History Any Significant Family History?: Yes Hx Heart Disease: Father, Mother Physical Exam - General General Appearance: Alert, Oriented x3, Cooperative, Moderate distress Limitations: No limitations - Head Head exam: Atraumatic, Normocephalic, Normal inspection Head exam detail: negative: Abrasion, Contusion, Sharma's sign, General tenderness, Hematoma, Laceration - Eye Eye exam: Normal appearance. negative: Conjunctival injection, Periorbital swelling, Periorbital tenderness, Scleral icterus - ENT Ear exam: negative: Auricular hematoma, Auricular trauma Nasal Exam: negative: Active bleeding, Discharge, Dried blood, Foreign body Mouth exam: negative: Drooling, Laceration, Muffled voice, Tongue elevation - Neck Neck exam: Normal inspection. negative: Meningismus, Tenderness - Respiratory Respiratory exam: Decreased breath sounds. negative: Rales, Respiratory distress, Rhonchi, Stridor, Wheezes - Cardiovascular Cardiovascular Exam: Irregular rhythm, Other (Metallic click on auscultation) - GI/Abdominal GI/Abdominal exam: Soft. negative: Rebound, Rigid, Tenderness - Rectal Rectal exam: Deferred - exam: Deferred - Extremities Extremities exam: Normal inspection. negative: Pedal edema, Tenderness - Back Back exam: Denies: CVA tenderness (R), CVA tenderness (L) - Neurological Neurological exam: Alert, Normal gait, Oriented X3 - Psychiatric Psychiatric exam: Normal affect, Normal mood - Skin Skin exam: Normal color. 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 RLL infiltrate Reevaluation #3: 09/11/18 23:33 Patient was reassessed, reports improvement in his symptoms, BS improved on re- examination as well. Awaiting remaining laboratory study results. Reevaluation #4: 09/11/18 23:39 Laboratory studies were reviewed and are grossly unremarkable for an acute process except for the following: BNP 2633 INR 1.7 Troponin 0.010 as well. Solumedrol ordered to infuse as well as Zithromax/Rocephin for likely CAP, will admit for further evaluation. Patient and his SO were updated on all results and are in agreement with the plan of care as discussed. Reevaluation #5: 09/12/18 06:35 Case was discussed with Dr. Maya, will accept admission at this time. Medical Decision Making - Lab Data Result diagrams: 09/11/18 22:50 09/11/18 22:50 Disposition Disposition: Admit Clinical Impression: Hypoxia COPD (chronic obstructive pulmonary disease) Qualifiers: COPD type: COPD with acute exacerbation Qualified Code(s): J44.1 - Chronic obstructive pulmonary disease with (acute) exacerbation CAP (community acquired pneumonia) Qualifiers: Laterality: right Lung location: lower lobe of lung Qualified Code(s): J18.1 - Lobar pneumonia, unspecified organism Disposition: Still a Patient at [facility] Decision to Admit: Admit from ER Decision to Admit Date: 09/11/18 Decision to Admit Time: 23:35 Condition: (2) Stable Time of Disposition: 23:35 Quality - Quality Measures Quality Measures: N/A - Blood Pressure Screening Does Patient Have Any of the Following: Active Dx of HTN Blood Pressure Classification: Hypertensive Reading Systolic Measurement: 187 Diastolic Measurement: 104 Screening for High Blood Pressure: Patient Exclusion, Hx of HTN [[id number]]
[2018-09-11 23:16] LABS: HEMATOCRIT 45.8 % (42.0-52.0); HEMOGLOBIN 15.4 gm/dl (14.0-18.0); MEAN CELL VOLUME 91.4 fl (81-97); MEAN CORPUSCULAR HEMOGLOBIN 30.7 pg (27-33); MEAN CORPUSCULAR HGB CONC 33.6 g/dl (32-36); MEAN PLATELET VOLUME 11.2 fl (7.4-10.4); PLATELET COUNT 161 K/uL (130-400); RED BLOOD COUNT 5.01 M/uL (4.40-5.70); RED CELL DISTRIBUTION WIDTH 16.2 % (11.5-14.5); WHITE BLOOD COUNT W/O DIFF 10.5 K/uL (4.2-12.2)
[2018-09-11 23:24] LABS: BLOOD UREA NITROGEN 8 mg/dL (6-20)
[2018-09-11 23:25] LABS: CREATININE 0.7 mg/dL (0.7-1.2); EST GLOMERULAR FILTRATION RATE > 60 mL/min; INR 1.7; PROTHROMBIN TIME (PATIENT) 17.1 SECONDS (9.5-12.1); TOTAL PROTEIN 7.4 g/dL (6.6-8.7)
[2018-09-11 23:27] LABS: GLUCOSE,RANDOM 114 mg/dL (74-109)
[2018-09-11 23:30] LABS: ALB/GLOB RATIO 1.2 (1.1-1.8); ALBUMIN 4.1 g/dL (4.0-5.0); ALKALINE PHOSPHATASE 84 U/L (40-129); ALT/SGPT 10 U/L (<41); AST/SGOT 16 U/L (10.0-50.0)
[2018-09-11] MEDS ORDERED: METHYLPREDNISOLONE PF 125MG/VIAL IVP ONE (23:35)
[2018-09-11 23:36] LABS: ANISOCYTOSIS 1+; PLATELET ESTIMATE NORMAL (NORMAL)
[2018-09-11] MEDS ORDERED: CEFTRIAXONE 1GM/50ML BAG 1 GM/50 ML BAG IVPB ONE (23:40)
[2018-09-11] MEDS ORDERED: AZITHROMYCIN 500 MG in 0.9 % SODIUM CHLORIDE 250ML 250 ML IVPB ONE (23:41)
[2018-09-12] MEDS ORDERED: CEFTRIAXONE SODIUM 1 GM in 0.9 % SODIUM CHLORIDE 100ML 100 ML IVPB SCH (00:18)
[2018-09-12] MEDS ORDERED: ACETAMINOPHEN 500 MG TABLET PO PRN (00:18)
[2018-09-12] MEDS ORDERED: ALBUTEROL SULFATE (0.083%) 2.5 MG/3 ML NEB INH PRN (00:18)
[2018-09-12] MEDS ORDERED: AZITHROMYCIN 500 MG in 0.9 % SODIUM CHLORIDE 250ML 250 ML IVPB SCH (00:18)
[2018-09-12] MEDS ORDERED: 0.9 % SODIUM CHLORIDE 1000ML 1,000 ML IV PRN (00:18)
[2018-09-12] MEDS: IPRATROPIUM/ALBUTEROL (0.5MG/3MG) NEB INH SCH ×2 (07:15→09:45)
[2018-09-12] MEDS ORDERED: SYMBICORT INH SCH (10:00)
[2018-09-12] MEDS ORDERED: BREO (FLUTICASONE/VILANTEROL) 100MCG/25MCG INHALER INH SCH (10:00)
[2018-09-12] MEDS ORDERED: METHYLPREDNISOLONE PF 125MG/VIAL IVP SCH (10:00)
[2018-09-12] MEDS ORDERED: LISINOPRIL 5 MG TABLET PO SCH (10:00)
--- NOTE | 2018-09-12 11:24 | History & Physical ---
History of Present Illness - Date of Service Date of Service for History & Physical: 09/12/18 - History of Present Illness Admitting Diagnosis: Hypoxia. COPD. Communitey Acquired Pneumonia History of Present Illness: Mr. Harp is a 58 y/o male with history of COPD, congestive heart failure, and mitral valve replacement who presents with worsening shortness of breath over the past 3 days. The patient reports that he recently returned from a trip to [place] and [place] and while driving back he felt somewhat short of breath but it was manageable using his Symbicort inhaler. He says that when he returned home he again felt short of breath and did not feel as very well. Yesterday he says that he became quite fatigued and had worsening shortness of breath but denies chest pain, palpitations, or leg swelling. He says that he uses his Lasix if notices any leg swelling but he did not have to over the past several days. On arrival to the ED the patient wsa noted be hypoxic with saturations in the mid 80s and chest xray noted chronic fibrotic changes with opacification which could represent pneumonia or fluid. His labs ahowed prBNP 2,663, and no white elevation in white count and INR was subtherapeutic at 1.7. The patient's symptoms improved on 2 liters nasal cannula oxygen and he was started on Zithromax and Rocephin IV. On examination this morning the patient is resting comfortably and is not requiring any oxygen at this time. PCP: Dr. Garcia (Timothy) Finding Fastener: Dr. Grant (Timothy) Travel Screening - Travel/Exposure Within Last 30 Days Have you traveled within the last 30 days?: Yes Location Detail:: [place] - Travel/Exposure Within Last Year Have you traveled outside the [place] in the last year?: No - Additonal Travel Details Have you been exposed to anyone with a communicable illness?: No - Travel Symptoms Symptom Screening: None Review of Systems Constitutional: Denies: Chills, Fever, Malaise, Night sweats Eyes: Denies: Eye discharge, Eye pain ENT: Denies: Congestion, Ear pain, Epistaxis Respiratory: Reports: Dyspnea. Denies: Cough Cardiovascular: Reports: Dyspnea on exertion. Denies: Chest pain Endocrine: Denies: Fatigue, Heat or cold intolerance Gastrointestinal: Denies: Abdominal pain, Nausea, Vomiting Genitourinary: Denies: Incontinence, Retention Musculoskeletal: Denies: Arthralgia, Back pain, Gout, Joint swelling Skin: Denies: Bruising, Change in color Neurological: Denies: Abnormal gait, Confusion, Headache, Seizure Psychiatric: Denies: Anxiety Hematological/Lymphatic: Denies: Anemia, Blood Clots Past Medical History - SOCIAL HISTORY Smoking Status: Former smoker - RESPIRATORY Hx Respiratory Disorders: Yes Hx COPD: Yes - CARDIOVASCULAR Hx Cardio Disorders: Yes Hx CHF: Yes Hx Hypertension: Yes Hx Irregular Heartbeat: Yes (A-fib) - NEURO Hx Neuro Disorders: No - GI Hx GI Disorders: No - Hx Genitourinary Disorders: No - ENDOCRINE Hx Endocrine Disorders: No - MUSCULOSKELETAL Hx Musculoskeletal Disorders: Yes Comment:: disc disease - PSYCH Hx Psych Problems: No - HEMATOLOGY/ONCOLOGY Hx Hematology/Oncology Disorders: No Family Medical History Any Significant Family History?: Yes Hx Heart Disease: Father, Mother H&P Meds/Allergies - Allergies Allergies: Allergies Allergy/AdvReac Type Severity Reaction Status Date / Time enoxaparin [From Lovenox] Allergy RASH Verified 09/11/18 22:45 - Home Medications Home Medications Medication Instructions Recorded Confirmed Last Taken Budesonide/Formoterol Fumarate 2 inh IH BID 09/11/18 09/11/18 09/11/18 [Symbicort 80-4.5 Mcg Inhaler] - Active Medications Active Medications: Current Medications Acetaminophen (Tylenol 500mg Tab) 1,000 mg PO Q6H PRN PRN Reason: PAIN - MILD(1-4)/FEVER Albuterol Sulfate (Albuterol Sulfate) 2.5 mg INH RESP.Q2H PRN PRN Reason: DIFFICULTY IN BREATHING Albuterol/Ipratropium (Duoneb) 3 ml INH RESP.Q4H.[facility] Last Admin: 09/12/18 09:45 Dose: 3 ml Digoxin (Lanoxin) 250 mcg PO QPM [facility] Azithromycin 500 mg/ Sodium (Chloride) 250 mls @ 250 mls/hr IVPB Q24H [facility] Stop: 09/18/18 01:01 Ceftriaxone Sodium 1 gm/ (Sodium Chloride) 100 mls @ 100 mls/hr IVPB Q24H [facility] Stop: 09/18/18 02:01 Lisinopril (Zestril) 5 mg PO DAILY [facility] Last Admin: 09/12/18 09:56 Dose: 5 mg Methylprednisolone Sodium Succinate (Solu-Medrol) 125 mg IVP DAILY [facility] Last Admin: 09/12/18 09:56 Dose: 125 mg Metoprolol Succinate (Toprol Xl) 150 mg PO QPM [facility] Patient Own Med: Symbicort 80/4.5 2 Puffs Bid 2 each INH BID [facility] Last Admin: 09/12/18 09:45 Dose: 2 each Warfarin Sodium (Coumadin) 3 mg PO [id number] [facility] Warfarin Sodium (Coumadin) 1 mg PO WEEKLY [facility] Warfarin Sodium (Coumadin) 1 mg PO WEEKLY [facility] Physical Exam - Vital Signs Vital Signs: Vital Signs - Last 24 Hrs Temp Pulse Pulse Pulse Resp BP BP 09/12/18 09:45 80 18 09/12/18 08:00 98.1 F 79 18 140/83 09/12/18 07:20 80 18 09/12/18 07:19 24 09/12/18 04:00 97.7 F 77 18 135/74 09/12/18 01:31 76 16 09/12/18 00:48 97.5 F L 77 20 169/86 09/12/18 00:01 66 18 146/87 09/11/18 23:01 85 20 160/87 09/11/18 22:46 98.2 F 88 18 187/104 Pulse Ox 09/12/18 09:45 97 09/12/18 08:00 96 09/12/18 07:20 96 09/12/18 07:19 09/12/18 04:00 99 09/12/18 01:31 09/12/18 00:48 99 09/12/18 00:01 95 09/11/18 23:01 94 L 09/11/18 22:46 85 L - General General Appearance: Alert, Oriented x3, Cooperative, Moderate distress Limitations: No limitations - Head Head exam: Atraumatic, Normocephalic, Normal inspection Head exam detail: negative: Abrasion, Contusion, Sharma's sign, General tenderness, Hematoma, Laceration - Eye Eye exam: Normal appearance. negative: Conjunctival injection, Periorbital swelling, Periorbital tenderness, Scleral icterus - ENT Ear exam: negative: Auricular hematoma, Auricular trauma Nasal Exam: negative: Active bleeding, Discharge, Dried blood, Foreign body Mouth exam: negative: Drooling, Laceration, Muffled voice, Tongue elevation - Neck Neck exam: Normal inspection. negative: Meningismus, Tenderness - Respiratory Respiratory exam: Decreased breath sounds. negative: Rales, Respiratory distress, Rhonchi, Stridor, Wheezes - Cardiovascular Cardiovascular Exam: Irregular rhythm, Other (Metallic click on auscultation) - GI/Abdominal GI/Abdominal exam: Soft. negative: Rebound, Rigid, Tenderness - Rectal Rectal exam: Deferred - exam: Deferred - Extremities Extremities exam: Normal inspection. negative: Pedal edema, Tenderness - Back Back exam: Denies: CVA tenderness (R), CVA tenderness (L) - Neurological Neurological exam: Alert, Normal gait, Oriented X3 - Psychiatric Psychiatric exam: Normal affect, Normal mood - Skin Skin exam: Normal color. negative: Abrasion Type of lesion: negative: abrasion Results - Labs Result Diagrams: 09/11/18 22:50 09/11/18 22:50 Labs Last 24 Hours: Laboratory Results - last 24 hr 09/11/18 09/11/18 09/11/18 22:50 22:50 22:50 WBC 10.5 RBC 5.01 Hgb 15.4 Hct 45.8 MCV 91.4 MCH 30.7 MCHC 33.6 RDW 16.2 H Plt Count 161 MPV 11.2 H Neutrophils % 71.0 Band Neutrophils % 4.0 Eosinophils % Not Reportable Basophils % Not Reportable Lymphocytes 18.0 Monocytes 5.0 Metamyelocytes 1.0 Platelet Estimate Normal Anisocytosis 1+ Eosinophil Count 1.0 PT 17.1 H INR 1.7 Sodium 140 Potassium 3.6 Chloride 105 Carbon Dioxide 24.0 Anion Gap 11.0 BUN 8 Creatinine 0.7 Estimated GFR > 60 Random Glucose 114 H Calcium 9.2 Total Bilirubin 1.20 H AST 16 ALT 10 Alkaline Phosphatase 84 Troponin T < 0.010 NT-Pro-B Natriuret Pep 2633.00 H Total Protein 7.4 Albumin 4.1 Globulin 3.3 Albumin/Globulin Ratio 1.2 Digoxin 09/11/18 22:50 WBC RBC Hgb Hct MCV MCH MCHC RDW Plt Count MPV Neutrophils % Band Neutrophils % Eosinophils % Basophils % Lymphocytes Monocytes Metamyelocytes Platelet Estimate Anisocytosis Eosinophil Count PT INR Sodium Potassium Chloride Carbon Dioxide Anion Gap BUN Creatinine Estimated GFR Random Glucose Calcium Total Bilirubin AST ALT Alkaline Phosphatase Troponin T NT-Pro-B Natriuret Pep Total Protein Albumin Globulin Albumin/Globulin Ratio Digoxin 0.6 L VTE H&P Assessment - Risk for VTE Risk for VTE: Yes Risk Level: High Risk Assessment Date: 09/12/18 Risk Assessment Time: 11:41 VTE Orders Placed or Will Be Placed: Yes Plan - Detailed Diagnosis and Plan (1) Hx of mitral valve replacement with mechanical valve Current Visit: Yes Status: Acute Base Code: Z95.2 - PRESENCE OF PROSTHETIC HEART VALVE Comment: 09/12/18: - MR s/p mechanical mitral valve implantation 2008. - On Coumadin. INR subtherapeutic at 1.7, goal is 2.5-3.5. - Pt has had recent changes to Coumadin dose. (2) CAP (community acquired pneumonia) Current Visit: Yes Status: Acute Qualifiers: Laterality: right Lung location: lower lobe of lung Qualified Code(s): J18.1 - Lobar pneumonia, unspecified organism Base Code: J18.9 - PNEUMONIA, UNSPECIFIED ORGANISM Comment: 09/12/18: - RLL opacifiaction. Fluid vs pneumonia. - Zithromax and Rocephin to change to Cefdinir 300mg BID x 7 days. - Interval chest xary in 1 week by PCP. (3) COPD (chronic obstructive pulmonary disease) Current Visit: Yes Status: Acute Qualifiers: COPD type: COPD with acute exacerbation Qualified Code(s): J44.1 - Chronic obstructive pulmonary disease with (acute) exacerbation Base Code: J44.9 - CHRONIC OBSTRUCTIVE PULMONARY DISEASE, UNSPECIFIED (4) Hypoxia Current Visit: Yes Status: Acute Base Code: R09.02 - HYPOXEMIA Comment: 09/12/18: - 85 % on admisson. - Resolved and saturating at 95% on RA presently. (5) Atrial fibrillation Current Visit: No Status: Acute Base Code: I48.91 - UNSPECIFIED ATRIAL FIBRILLATION Comment: 09/12/18: - Hx of mechanical mitral valve and atrial fibrillation. - Resume digoxin, metoprolol and anti coagulation with Coumadin. - Cardiac monitoring, stable. Trop x 1 negative. (6) CHF (congestive heart failure) Current Visit: Yes Status: Acute Base Code: I50.9 - HEART FAILURE, UNSPECIFIED Comment: 09/12/18: - EF ? - proBNP: 2,663, baseline unknown - CXR: fibrosis with possible areas of congestion. - Resume Metroprolol and Lisinopril. (7) DVT prophylaxis Current Visit: Yes Status: Acute Base Code: [id number] - Comment: 09/12/18: - On therapeutic dose of Coumadin. INR not at goal. (8) Full code status Current Visit: No Status: Acute Base Code: Z78.9 - OTHER SPECIFIED HEALTH STATUS Comment: 09/12/18: - Full code status. - Disposition d/c home today with PO abx and Lasix. Follow up with PCP in the morning.,
--- NOTE | 2018-09-12 11:47 | Discharge Summary ---
Providers Discharge Summary Date: 09/12/18 Date of admission: 09/12/18 00:15 Attending physician: SHAWN ENCARNACION Primary care physician: WATSON CHONG D.O. Physical Exam - Vital Signs Vital Signs: Vital Signs - Last 24 Hrs Temp Pulse Pulse Pulse Resp BP BP 09/12/18 09:45 80 18 09/12/18 08:00 98.1 F 79 18 140/83 09/12/18 07:20 80 18 09/12/18 07:19 24 09/12/18 04:00 97.7 F 77 18 135/74 09/12/18 01:31 76 16 09/12/18 00:48 97.5 F L 77 20 169/86 09/12/18 00:01 66 18 146/87 09/11/18 23:01 85 20 160/87 09/11/18 22:46 98.2 F 88 18 187/104 Pulse Ox 09/12/18 09:45 97 09/12/18 08:00 96 09/12/18 07:20 96 09/12/18 07:19 09/12/18 04:00 99 09/12/18 01:31 09/12/18 00:48 99 09/12/18 00:01 95 09/11/18 23:01 94 L 09/11/18 22:46 85 L - General General Appearance: Alert, Oriented x3, Cooperative, Moderate distress Limitations: No limitations - Head Head exam: Atraumatic, Normocephalic, Normal inspection Head exam detail: negative: Abrasion, Contusion, Sharma's sign, General tenderness, Hematoma, Laceration - Eye Eye exam: Normal appearance. negative: Conjunctival injection, Periorbital swelling, Periorbital tenderness, Scleral icterus - ENT Ear exam: negative: Auricular hematoma, Auricular trauma Nasal Exam: negative: Active bleeding, Discharge, Dried blood, Foreign body Mouth exam: negative: Drooling, Laceration, Muffled voice, Tongue elevation - Neck Neck exam: Normal inspection. negative: Meningismus, Tenderness - Respiratory Respiratory exam: Decreased breath sounds. negative: Rales, Respiratory distress, Rhonchi, Stridor, Wheezes - Cardiovascular Cardiovascular Exam: Irregular rhythm, Other (Metallic click on auscultation) Peripheral Pulses: 3+: Radial (R), Radial (L), Dorsalis Pedis (R), Dorsalis Pedis (L) - GI/Abdominal GI/Abdominal exam: Soft. negative: Rebound, Rigid, Tenderness - Rectal Rectal exam: Deferred - exam: Deferred - Extremities Extremities exam: Normal inspection. negative: Pedal edema, Tenderness - Back Back exam: Denies: CVA tenderness (R), CVA tenderness (L) - Neurological Neurological exam: Alert, Normal gait, Oriented X3 - Psychiatric Psychiatric exam: Normal affect, Normal mood - Skin Skin exam: Normal color. negative: Abrasion Type of lesion: negative: abrasion Hospitalization - Hospitalization Admission Diagnosis: Hypoxia. COPD. Communitey Acquired Pneumonia - Problem List/Discharge Diagnosis (1) Hx of mitral valve replacement with mechanical valve Current Visit: Yes Status: Acute Base Code: Z95.2 - PRESENCE OF PROSTHETIC HEART VALVE Comment: 09/12/18: - MR s/p mechanical mitral valve implantation 2008. - On Coumadin. INR subtherapeutic at 1.7, goal is 2.5-3.5. - Pt has had recent changes to Coumadin dose. (2) CAP (community acquired pneumonia) Current Visit: Yes Status: Acute Discharge Diagnosis: Laterality: right Lung location: lower lobe of lung Qualified Code(s): J18.1 - Lobar pneumonia, unspecified organism Base Code: J18.9 - PNEUMONIA, UNSPECIFIED ORGANISM Comment: 09/12/18: - RLL opacifiaction. Fluid vs pneumonia. - Zithromax and Rocephin to change to Cefdinir 300mg BID x 7 days. - Interval chest xary in 1 week by PCP. (3) COPD (chronic obstructive pulmonary disease) Current Visit: Yes Status: Acute Discharge Diagnosis: COPD type: COPD with acute exacerbation Qualified Code(s): J44.1 - Chronic obstructive pulmonary disease with (acute) exacerbation Base Code: J44.9 - CHRONIC OBSTRUCTIVE PULMONARY DISEASE, UNSPECIFIED (4) Hypoxia Current Visit: Yes Status: Acute Base Code: R09.02 - HYPOXEMIA Comment: 09/12/18: - 85 % on admisson. - Resolved and saturating at 95% on RA presently. (5) Atrial fibrillation Current Visit: No Status: Acute Base Code: I48.91 - UNSPECIFIED ATRIAL FIBRILLATION Comment: 09/12/18: - Hx of mechanical mitral valve and atrial fibrillation. - Resume digoxin, metoprolol and anti coagulation with Coumadin. - Cardiac monitoring, stable. Trop x 1 negative. (6) CHF (congestive heart failure) Current Visit: Yes Status: Acute Base Code: I50.9 - HEART FAILURE, UNSPECIFIED Comment: 09/12/18: - EF ? - proBNP: 2,663, baseline unknown - CXR: fibrosis with possible areas of congestion. - Resume Metroprolol and Lisinopril. (7) DVT prophylaxis Current Visit: Yes Status: Acute Base Code: [id number] - Comment: 09/12/18: - On therapeutic dose of Coumadin. INR not at goal. (8) Full code status Current Visit: No Status: Acute Base Code: Z78.9 - OTHER SPECIFIED HEALTH STATUS Comment: 09/12/18: - Full code status. - Disposition d/c home today with PO abx and Lasix. Follow up with PCP in the morning., - Hospitalization Course Hospital Course: Mr. Harp is a 58 y/o male with history of COPD, congestive heart failure, and mitral valve replacement who presents with worsening shortness of breath over the past 3 days. The patient reports that he recently returned from a trip to [place] and [place] and while driving back he felt somewhat short of breath but it was manageable using his Symbicort inhaler. He says that when he returned home he again felt short of breath and did not feel as very well. Yesterday he says that he became quite fatigued and had worsening shortness of breath but denies chest pain, palpitations, or leg swelling. He says that he uses his Lasix if notices any leg swelling but he did not have to over the past several days. On arrival to the ED the patient wsa noted be hypoxic with saturations in the mid 80s and chest xray noted chronic fibrotic changes with opacification which could represent pneumonia or fluid. His labs ahowed prBNP 2,663, and no white elevation in white count and INR was subtherapeutic at 1.7. The patient's symptoms improved on 2 liters nasal cannula oxygen and he was started on Zithromax and Rocephin IV. On examination this morning the patient is resting comfortably and is not requiring any oxygen at this time. PCP: Dr. Garcia (Timothy) Single Needle Operator: Dr. Grant (Timothy) Procedures: Imaging and X-Rays 09/11/18 22:53 CHEST 1 VIEW [RAD] Stat Cardiology Procedures 09/11/18 23:03 EKG NOW 09/12/18 00:18 Heater Worker .Continuous Abnormal Labs: Abnormal Lab Results 09/11/18 09/11/18 09/11/18 Range/Units 22:50 22:50 22:50 RDW 16.2 H (11.5-14.5) % MPV 11.2 H (7.4-10.4) fl PT 17.1 H (9.5-12.1) SECONDS Random Glucose 114 H (74-109) mg/dL Total Bilirubin 1.20 H (0.2-1.0) mg/dL NT-Pro-B Natriuret Pep 2633.00 H (<125) pg/mL Digoxin (0.8-2.0) ng/mL 09/11/18 Range/Units 22:50 RDW (11.5-14.5) % MPV (7.4-10.4) fl PT (9.5-12.1) SECONDS Random Glucose (74-109) mg/dL Total Bilirubin (0.2-1.0) mg/dL NT-Pro-B Natriuret Pep (<125) pg/mL Digoxin 0.6 L (0.8-2.0) ng/mL Condition at Discharge: (2) Stable Discharge Medications - Discharge Medications Prescriptions: Cefdinir [Omnicef] 300 mg PO BID 7 Days #14 cap Furosemide [Lasix] 40 mg PO DAILY #7 tablet Prednisone [Prednisone 20Mg] 40 mg PO DAILY 4 Days #8 tab Home Medications: Ambulatory Orders Digoxin 250 mcg PO QPM 07/18/16 [Last Taken 09/11/18] Metoprolol Succinate 150 mg PO QPM 07/18/16 [Last Taken 09/11/18] Warfarin Sodium [Coumadin] 3 mg PO QPM 07/18/16 [Last Taken 09/11/18] Budesonide/Formoterol Fumarate [Symbicort 80-4.5 Mcg Inhaler] 2 inh IH BID 09/11 [Last Taken 09/11/18] Cefdinir [Omnicef] 300 mg PO BID 7 Days #14 cap 09/12/18 [Last Taken Unknown] Furosemide [Lasix] 40 mg PO DAILY #7 tablet 09/12/18 [Last Taken Unknown] Lisinopril [Zestril] 5 mg PO DAILY tablet 09/12/18 [Last Taken Unknown] Prednisone [Prednisone 20Mg] 40 mg PO DAILY 4 Days #8 tab 09/12/18 [Last Taken Unknown] Discharge Plan - Discharge Instructions Activity at Discharge: Resume Usual Activities As Tolerated Diet at Discharge: Regular Diet Additional Instructions: Take antibiotics as prescribed for the next 7 days. Follow up with Dr. Garcia your PCP tomorrow and have a repeat chest xray within 1 week. If you experience similar shortness of breath or chest pain go to the nearest ED. Quality Measures - Quality Measures Quality Measures: Atrial Fibrillation & Atrial Flutter: Chronic Anticoagulation Therapy, Documentation of Current Medications in Medical Record, Heart Failure, Screening for High Blood Pressure and F/U Documented - Current Medications Quality Measure: Measure #130: Documentation of Current Medications Documentation of Current Medications: <Current Medications Documented/Reviewed> [G8481] - Blood Pressure Screening Quality Measure: Screening for High Blood Pressure and Follow-Up Documented Does Patient Have Any of the Following: Active Dx of HTN Blood Pressure Classification: Hypertensive Reading Systolic Measurement: 187 Diastolic Measurement: 104 Screening for High Blood Pressure: Patient Exclusion, Hx of HTN [G9744] - Atrial Fibrillation and Atrial Flutter Quality Measure: Atrial Fibrillation & Atrial Flutter: Chronic Anticoagulation Therapy Does Patient Have Any of the Following: Prosthetic Heart Valves CHADS2 Risk Stratification: Hypertension, Heart Failure or Impaired LVSF Risk Stratification Summary: One or more high risk factors OR more than one moderate risk factor exists. [G8972] Anticoagulation Therapy: <Oral anticoagulant Prescribed> [G8967] - Heart Failure (BLANCA/ARB Therapy) Quality Measure: Heart Failure Left Ventricular Systolic Function: Unknown BLANCA Inhibitor or ARB Therapy for LVSD: <BLANCA Inhibitor or ARB therapy prescribed or currently taken> [4010F] - Heart Failure (Beta-stephany Therapy) Quality Measure: Heart Failure Left Ventricular Systolic Function: Unknown Beta-Stephany Therapy for LVEF < 40%: <Beta-Stephany Therapy Prescribed> [G8450] - Elder Abuse Suspicion Index EASI Reference Information: Isi RODRIGUEZ, Harvey C, Marichuy D, Mona Wright.Development and validation of a tool to assist physicians identification of elder abuse: The Elder Abuse Suspicion Index (EASI ). Journal of Elder Abuse and Neglect, 2008; 20 (3): 276-300.
[2018-09-12] MEDS ORDERED: WARFARIN 1 MG TABLET PO ONE (16:00)
[2018-09-12] MEDS ORDERED: WARFARIN 1 MG TABLET PO SCH ×2 (16:00)
[2018-09-12] MEDS ORDERED: DIGOXIN 125 MCG TABLET PO SCH (17:00)
[2018-09-12] MEDS ORDERED: METOPROLOL SUCC 50 MG TABLET PO SCH (17:00)
[2018-09-13] MEDS ORDERED: AZITHROMYCIN 500 MG in 0.9 % SODIUM CHLORIDE 250ML 250 ML IVPB SCH (01:00)
[2018-09-13] MEDS ORDERED: CEFTRIAXONE SODIUM 1 GM in 0.9 % SODIUM CHLORIDE 100ML 100 ML IVPB SCH (02:00)
[2018-09-13] MEDS ORDERED: WARFARIN 1 MG TABLET PO ONE (16:00)
[2018-09-13] MEDS ORDERED: WARFARIN 1 MG TABLET PO SCH (16:00)
[2018-09-13] MEDS ORDERED: WARFARIN 5 MG TAB PO SCH (16:00)
--- NOTE | 2018-09-14 05:33 | RADIOLOGY REPORT ---
EXAM: PORTABLE CHEST HISTORY: SHORTNESS OF BREATH, CONGESTIVE HEART FAILURE. TECHNIQUE: A portable AP view of the chest was obtained. Comparison: Two view chest radiograph 07/22/16, CTA chest 07/18/16. FINDINGS: Postoperative change of the mediastinum as seen previously. Coarse bilateral pulmonary opacities in the mid lung and lung base regions, overall similar from prior and suggesting chronic fibrosis. Bilateral pleural thickening, asymmetrically prominent on the right. Mild patchy bilateral perihilar opacities are increased from prior. No visible pneumothorax. IMPRESSION: 1. MILD BILATERAL PERIHILAR OPACITIES ARE INCREASED FROM COMPARISON ON . THIS MAY REPRESENT PROGRESSIVE UNDERLYING PULMONARY FIBROSIS OR AN ACUTE AIR SPACE PROCESS SUCH EDEMA OR PNEUMONIA. 2. OTHERWISE CHRONIC BILATERAL PULMONARY OPACITIES AND BILATERAL PLEURAL THICKENING APPEARS SIMILAR FROM PRIOR CHEST RADIOGRAPH AND IS COMPATIBLE WITH UNDERLYING PULMONARY FIBROSIS. JOB NUMBER: [id number] [facility]
[2018-09-17] MEDS ORDERED: WARFARIN 1 MG TABLET PO SCH (16:00)
== END 2018-09-12 12:45 | disposition home or self-care (01) ==
LOC: ER 22:43 → MEDSURG 09-12 00:15
PROVIDERS: ADMIT Internal Medicine; ATTEND Internal Medicine
DX: J18.1 Lobar pneumonia, unspecified organism (principal); J44.1 Chronic obstructive pulmonary disease with (acute) exacerbation; R09.02 Hypoxemia; I50.9 Heart failure, unspecified; I10 Essential (primary) hypertension; I48.91 Unspecified atrial fibrillation; Z87.891 Personal history of nicotine dependence; Z95.2 Presence of prosthetic heart valve
CPT/HCPCS: 99285 ×2; 96374; 96375; 85610; 80053; 84484; 80162; 85027; 83880; 71045; 94640 ×3; 94761; 93005; 93010; G0378; J0696; 99236; J0456; J2930; J7050